=== PATIENT | male | born 1950 | race Caucasian/White ===

== ENCOUNTER 2025-07-24 19:37 | Emergency (ER) | payer MEDICARE, SELFPAY ==
--- OUTSIDE RECORDS SUMMARY | 2007-09-30 07:57 | XMS_ITS | Continuity of Care Document ---
Author Organization LEONELA Guillaume Address [address] [place] [address] Phone Care Team Providers Care [facility] Attendant Name Role Phone Esequiel UMANZOR MD, Herson Unavailable Unavailable Procedures Procedure Date Offic/outpt E&m Estab Low-mod 7 Advance Directives Directive Yes / No Effective Date File Name No Information Encounters Encounter Description Practice Location Reason(s) For Visit Diagnoses Date Provider Providers Copied on Encounter Offic/outpt E&m Estab Low-mod LEONELA Guillaume, [address], [place], [place], [id number], tel:[phone] [facility] No Information 7 Esequiel Bains. [address], [place], [place], [facility], . tel:[phone] Referring Provider: Herson Hitchcock, [address] [place], [place], [facility]. tel:[phone] Family History Family Member Type Diagnosis Age At Onset No Information Payers Payer name Insurance type Covered alliance party ID Authoriza timena(s) Blue Plus BL [id number] Social History Type Description Quantity Date Captured Comments Sex Male Smoking Status No Information Chief Complaint And Reason For Visit No Information Reason For Referral Reason For Referral No Information History Of Present Illness Encounter Date Complaint History Of Prese nt Illness No Information Functional Status Date Functional Assessmen t No Information Instructions Date Instruction Additional Infor mation No Information Assessments Type Assessment Date No Information Patient Care Teams Name Effective Dates (start - stop) Status Members No Information
--- OUTSIDE RECORDS SUMMARY | 2007-09-30 07:57 | XMS_ITS | Continuity of Care Document ---
Author Organization LEONELA Guillaume Address [address] [place] [address] Phone Care Team Providers Care Healthcare Receptionist Name Role Phone Esequiel UMANZOR MD, Herson Unavailable Unavailable Procedures Procedure Date Offic/outpt E&m Estab Low-mod 7 Advance Directives Directive Yes / No Effective Date File Name No Information Encounters Encounter Description Practice Location Reason(s) For Visit Diagnoses Date Provider Providers Copied on Encounter Offic/outpt E&m Estab Low-mod [facility]ONELA Guillaume, [address], [place], [place], [id number], tel:[phone] [facility] No Information 7 Eseuqiel Bains. [address], [place], [place], [facility], . tel:[phone] Referring Provider: Herson Hitchcock, [address] [place], [place], [facility]. tel:[phone] Family History Family Member Type Diagnosis Age At Onset No Information Payers Payer name Insurance type Covered republican ID Authoriza timena(s) Blue Plus BL [id number] Social History Type Description Quantity Date Captured [...]
--- OUTSIDE RECORDS SUMMARY | 2025-07-24 19:39 | XMS_ITS | Clinical Summary ---
Author Organization [facility] Address [address] [place] [address] Care Team Providers Care Plumbing Assembler Name Role Phone Frank, Cherelle Rbiera MD Primary Care Provider Allergies Active Allergy Reactions Criticality Noted Date Comments Rofecoxib Nausea Only Medications latanoprost (XALATAN) 0.005 % ophthalmic solution 1 06/13/20 15 Active celecoxib 200 mg capsuleIndications :Degeneration of intervertebral disc of lumbosacral region, unspecified whether pain present Take 1 Capsule (200 mg) by mouth once daily with a meal. 90 Capsule 3 02/18/20 25 Active gabapentin 100 mg capsuleIndications :Peripheral sensory neuropathy Take 2 Capsules (200 mg) by mouth three times daily. 540 Capsule 3 02/18/20 25 Active lisinopriL 20 mg tabletIndications: HTN (hypertension) Take 1 Tablet (20 mg) by mouth once daily. 90 Tablet 3 02/18/20 25 Active verapamil SR 240 mg extended release tabletIndications: Essential hypertension, malignant Take 1 Tablet (240 mg) by mouth once daily with a meal. 90 Tablet 3 02/18/20 25 Active traMADoL (ULTRAM) 50 mg tabletIndications: Articular cartilage disorder Take 1 Tablet (50 mg) by mouth four times daily. 120 Tablet 07/08/20 25 Active traMADoL 50 mg tabletIndications: Articular cartilage disorder Take 1 Tablet (50 mg) by mouth four times daily. 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 of lumbar or lumbosacral interverte bral disc 12/08/2008 Erectile dysfunction 12/08/2008 Resolved Problems Problem Noted Date Diagnosed Date Resolved Date Essential hypertension, malignant 07/20/2010 11/11/2014 VENTRICULAR TACHYCARDIA 05/2023 Encounters Date Type Department Care Team Description 07/08/2025 Refill [facility] [address] [place] [address] Cherelle Marie MD Refill Request (Tramadol) 05/26/2025 Refill [facility] [address] [place] [address] Cherelle Marie MD Refill Request (Tramadol) from Last 3 Months Immunizations Immunization Administration Dates Next Due Influenza, High-dose Quadrivalent Inactivated Influenza, IIV3 (Age >=3 years) 11/02/2008,11/06 Influenza, IIV4 09/01/2014 Influenza, Inactivated IIV3 (Age 65+ Years) Preserv Free 09/15/2018,12/12/2017 Pneumococcal Poly,23-Valent (Pneumovax) 09/15/20 18 Pneumococcal conj 13-Valent (Prevnar 13) 017 Td, Preservative Free (age >= 7 Years) 6 Tdap 03/01/2023,09/11/2012 Zoster (Shingrix-RZV, recombinant) 07/02/2023, Family History Medical History Relation Name Comments Heart Disease Father Not until in h is 80s Anesthesia Problem No Family History Blood Disease No Family History Relation Name Status Comments Father Social History Tobacco Use Types Packs/Day Years Used Date Smoking Tobacco: Never Smokeless Tobacco: Never Tobacco Cessation:Counseling Given: Yes Alcohol Use Standard Drinks/Week Comments Yes 0 (1 standard drink = 0.6 oz pur e alcohol) rare PHQ-2 Answer Date Recorded PHQ-2 TOTAL SCORE 0 02/17/2025 Social Connections Answer Date Recorded Do you often feel lonely or isolated from those around you? 0 02/17/2025 Financial Resource Strain Answer Date R ecorded Difficulty of Paying Living Expenses 3 02/17/2025 Difficulty of Paying Living Expenses Not on file 02/17/2025 Food Insecurity Answer Date Recorded Do you worry your food will run out before you are able to buy more? 1 02/17/2025 Transportation Needs Answer Date Record ed Does lack of transportation keep you from medica l appointments? 1 02/17/2025 Does lack of transportation keep you from work, meetings or getting things that you need? 1 02/17/2025 Housing Stability Answer Date Recorded What is your housing situation today? 1 02/17/2025 Utilities Answer Date Recorded Do you have trouble paying f or utilities (for example, heat, electricity, water, phone)? 1 02/17/2025 Sex and Gender Information Value Date Recorded Sex Assigned at Not on file Legal Sex Male 6:27 AM MANAGER CREATIVE Gender Identity Not on file Sexual Orientation Not on file Obstetrics History Last Filed Vital Signs Vital Sign Reading Time Taken Comments Blood Pressure 168/91 02/17/2025 9:28 AM CDT Pulse 80 02/17/2025 9:28 AM CDT Temperature 36.6 C (97.8 F) 10/31/2023 9:07 AM MANAGER CREATIVE Respiratory Rate 14 02/18/2013 10:39 AM CDT Oxygen Saturation 98% 02/17/2025 9:28 AM CDT Inhaled Oxygen Concentration - - Weight 90.1 kg (198 lb 9.6 oz) 02/17/2025 9:28 A M CDT Height 179.1 cm (5' 10.5) 02/17/2025 9:28 AM CD T Body Mass Index 28.09 02/17/2025 9:28 AM CDT Plan of Treatment Upcoming Encounters Date Type Department Care Team (Late st Contact Info) Description 08/23/2025 9:55 AM CDT Office Visit [facility] [address] [facility] [address] Cherelle Marie MD [address] [place] [address] Health Maintenance Due Date Last Done Comments COVID-19 vaccine series ( season) 2025 08/10/2024, 09/10/2023, 08/21/2022, Additional history exists Influenza Vaccine (#1) 2025 8, 12/12/2017, 09/01/2014, Additional history exists BMI (ht and wt on same day) for age 18+ 02/17/2026 02/17/2025, 02/10/2024, 05/23/2023, Additional history exists Depression screening for age 12+ 02/18/2026 02/18/2025, 02/17/2025, 02/10/2024, Additional history exists Medicare Wellness for age 65+ 02/18/2026 02/17/2025, 02/10/2024, 02/04/2023, Additional history exists Fecal testing non-DNA (FIT,FOBT,iFOBT) for age 45-75 03/01/2026 03/01/2025, 02/11/2024, 02/07/2023, Additional history exists RSV vaccine for adults or (1 - 1-dose 75+ series) 2026 Lipids for age 45-75 02/17/2030 02/17/2025, 02/10/2024, 01/31/2022, Additional history exists Tetanus booster 03/01/2033 03/01/2023, 09/01, 05/12/2006 (Completed outside of [facility]), Additional history exists Pneumococcal series for age 50+ Completed 09/15/2018, 08/27/2017 Hepatitis C screening for age 18-79 Completed 10/20/2020 Zoster (shingles) series for age 50+ Completed 07/02/2023, 02/07/2023 Hepatitis B series for 19+ Aged Out N o longer eligible based on patient's age to complete this topic Medical Devices Implanted Type Area Dynamite Packing Machine Operator Device Identifier Shelf Expiration Date Model / Serial / Lot Sut Ancr 2.8 [employer]ak W/Fiber Wire - [id number] Implanted:Qty: 1 on 10/02/2006 at [facility] Ortho Implants, Misc. [employer] [id number] / / [id number] Procedures Procedure Name Priority Date/Time Associated Diagnosis Comments OCCULT BLOOD IFOBT STOOL Routine 03/01/2025 12:30 PM CDT Screening for colon cancer LIPID PANEL W REFLEX MEASURED LDL Routine 02/17/2025 10:16 AM CDT Lipid screening ANTI HCV Routine 10/20/2020 9:38 AM MANAGER CREATIVE Need for hepatitis C screening test from Last 3 Months or Most Recently Relevant to Health Maintenance Results * OCCULT BLOOD IFOBT STOOL [[id number]] (03/01/2025 12:30 PM CDT) STOOL BLOOD ,IFOBT Negative Negative 03/10/2025 6:12 PM CDT [facility] [employer] [facility] Stool STOOL SPECIMEN / Unknown Non-Blood / Unknown 03/01/2025 12:30 PM CDT 03/08/2025 1:12 PM CDT us Cherelle Marie MD LABORATORY Final R [facility] [address] * (ABNORMAL) LIPID PANEL W REFLEX MEASURED LDL (02/17/2025 10:16 AM CDT) CHOLESTEROL, TOTAL 184 <200 mg/dL [facility] HDL CHOLESTEROL 49 > OR = 40 mg/dL [facility] TRIGLYCERIDES 120 <150 mg/dL [facility] LDL-CHOLESTEROL 112(H) mg/dL (calc) [facility] Comment: Reference range: <100 Desirable range <100 mg/dL for primary prevention; <70 mg/dL for patients with CHD or diabetic patients with > or = 2 CHD risk factors. LDL-C is now calculated using the Eva calculation, which is a validated novel method providing better accuracy than the Friedewald equation in the estimation of LDL-C. Lucas WINKLER et al. CLAUDIA. 2013;310(19): 6999-4742 (http://education.Creativity Software/faq/YMO585) CHOL/HDLC RATIO 3.8 <5.0 (calc) [facility] NON HDL CHOLESTEROL 135(H) <130 mg/dL (calc) [facility] Comment: For patients with diabetes plus 1 major ASCVD risk factor, treating to a non-HDL-C goal of <100 mg/dL (LDL-C of <70 mg/dL) is considered a therapeutic option. Blood BLOOD SPECIMEN / Unknown 02/17/2025 10:16 AM CDT 02/17/2025 10:18 AM CDT Cherelle Marie MD CHEMISTRY Final R esult Performing Organization Address City/[facility]/ZIP Co de Phone Number [place] [facility] [address] [place] [address], [facility] [address] [place] [phone] * ANTI HCV (10/20/2020 9:38 AM MANAGER CREATIVE) HEPATITIS C ANTIBODY Non-React sarbjit Non-React sarbjit 10/20/2020 6:24 PM MANAGER CREATIVE [employer] [facility] Comment:Antibodies to HCV no t detected; does not exclude the possibility of exposure to HCV. Blood BLOOD SPECIMEN / Unknown Venipuncture / Unknown 10/20/2020 9:38 AM MANAGER CREATIVE 10/20/2020 9:38 AM MANAGER CREATIVE Cherelle Marie MD SEND OUTS Final R esult [employer] [facility] [address] [place] [address], [place] from Last 3 Months or Most Recently Relevant to Health Maintenance Insurance [facility] MEDICARE [employer] MEDICARE PB ONLY MEDICARE PART B HB ONLY MEDICARE PART A HB ONLY Advance Directives Documents on File Type Date Recorded Patient Grant Coordinator Expl anation Healthcare Directive 09/22/2018 11:13 AM HEALTHCARE DIRECTIVE, [place], 01/05/16 * Full Code (Latest Code Status on File) Date Activated Date Inactivated Comments 10/02/2006 11:41 AM 10/02/2006 5:53 PM Care Teams Plumbing Assembler Relationship Specialty Start Date End Date [place]here[place] [address] PCP - General Family Practice 04/29/12
[2025-07-24 19:45] VITALS: BP 163/88; PULSE 68; RESP 18; TEMP 36.8; O2SAT 98; BMI 26.5
--- NOTE | 2025-07-24 20:09 | CRLHL7_ITS ---
For Patients: As a result of the Century Cures Act, medical imaging exams and procedure reports are released immediately into your electronic medical record. You may view this report before your referring provider. If you have questions, please contact your health care provider. INDICATION: Neck pain left-sided. TECHNIQUE: Cervical spine 3 view. COMPARISON: None. FINDINGS: Bones: Alignment is normal. No fractures or significant bone lesions. Joints: Disc spaces and facets demonstrate mild multilevel degenerative changes.. Soft tissues: Unremarkable. Dictated by Tanya Cortes MD @ 07/24/2025 9:01:11 PM (Electronically Signed)
--- NOTE | 2025-07-24 20:14 | ED.GENADULT ---
HPI - General Adult General Date Seen: 07/24/25 Chief complaint: Shoulder Injury/Pain Stated complaint: L shoulder pain Time Seen by Provider: 07/24/25 19:56 Source: patient Mode of arrival: ambulatory Limitations: no limitations History of Present Illness HPI narrative: Patient is a 74-year-old gentleman who presents here for evaluation of left-sided neck pain, that he has worsening since this morning, he was pulling some weeds on some of his trees, and then noted that the left side of his neck became very painful. Denies any radiation past shoulder of the discomfort, any time he moves his neck he tends to cry out in pain, he has noted no altered sensation there is no history of fall or injury he has had no fevers chills or sweats. He does have a history of chronic pain involving both his knees and his back, and has been on tramadol and gabapentin for this, gabapentin is also used for his neuropathy neuropathy brought in tonight because he has pain level is what he describes is 10/11, I explained to him that that is not all conducive to her pain scale. Related Data Home Medications ?Medication ?Instructions ?Recorded ?Confirmed celecoxib 200 mg capsule 200 mg PO DAILY 07/24/25 07/24/25 gabapentin 100 mg capsule 200 mg PO 3XD 07/24/25 07/24/25 latanoprost 0.005 % eye drops 1 drp ophthalmic (eye) QPM 07/24/25 07/24/25 lisinopril 20 mg tablet 20 mg PO DAILY 07/24/25 07/24/25 tramadol 50 mg tablet 50 mg PO QID 07/24/25 07/24/25 verapamil 240 mg tablet,extended 240 mg PO DAILY 07/24/25 07/24/25 release Allergies Allergy/AdvReac Type Severity Reaction Status Date / Time No Known Drug Allergies Allergy Verified 07/24/25 19:51 Review of Systems Status of ROS: Reports: 10 or more systems reviewed and unremarkable except as noted in History and below PFSH [facility] Social History Smoking Status: Never smoker How often do you have a drink containing alcohol: monthly or less AUDIT-C Alcohol total score: 1 Non-prescribed substance use: denies use Exam Narrative: Exam Narrative: Patient is a nice gentleman seen in her room 5, he is able to sit up, is able to walk normally movement of his neck is from approximately from 8 cm to 12 cm in flexion extension, side flexion is less than 5? and rotation is less than 30? bilaterally he describes pain over the left side of his paraspinal muscles of his neck. There is no problem with moving shoulders bilaterally, with internal external rotation and abduction. 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 Sensation is normal. No tenderness is noted along his carotids, is JVP is not elevated, there is no swelling of his neck he does not have any bruits bilaterally and his neck. Normal distal pulses are notable in both of his upper extremities. I recommended x-ray at this point as I suspect that this is radicular pain pattern. Const: Vital Signs, click to edit/add: Vital Signs - 24 hr 07/24/25 19:45 Temperature 98.2 F Pulse Rate [Pulse Oximeter] 68 Respiratory Rate 18 Blood Pressure [Ri ght Upper Arm] 163/88 H Pulse Oximetry 98 Oxygen Delivery Me thod Room Air Documenting provider has reviewed patient's vital signs: yes Course Course ED Course: I reviewed with the patient his x-rays look awesome, no evidence of significant spondylolisthesis is disc spaces all look excellent he does have some arthritis, I suspect this still could be either musculoskeletal from a muscle spasm or possibly related to a disc protrusion. Nevertheless I think a little bit of glucocorticoid, along with increasing his gabapentin would go a long way to helping him he already has appointment on Saturday to see his primary care physician, if he has increasing weakness, inability to move his left upper extremity other swelling, then I think coming back and be seen. But there is no evidence of any vascular problem here. He was really comfortable with this plan. Vital Signs Vital signs: Initial Vital Signs Temperature 98.2 F 07/24/25 19:45 Temperature Source Temporal Artery Scan 07/24/25 19:45 Pulse Rate 68 07/24/25 19:45 Respiratory Rate 18 07/24/25 19:45 Blood Pressure 163/88 H 07/24/25 19:45 Blood Pressure Mean 113 H 07/24/25 19:45 Blood Pressure Position Sitting 07/24/25 19:45 Pulse Oximetry 98 07/24/25 19:45 Oxygen Delivery Method Room Air 07/24/25 19:45 Vital Signs Temperature 98.2 F 07/24/25 19:45 Pulse Rate 68 07/24/25 19:45 Respiratory Rate 18 07/24/25 19:45 Blood Pressure 163/88 H 07/24/25 19:45 Pulse Oximetry 98 07/24/25 19:45 Oxygen Delivery Method Room Air 07/24/25 19:45 Temperature 98.2 F 07/24/25 19:45 Pulse Rate 68 07/24/25 19:45 Respiratory Rate 18 07/24/25 19:45 Blood Pressure 163/88 H 07/24/25 19:45 Pulse Oximetry 98 07/24/25 19:45 Oxygen Delivery Method Room Air 07/24/25 19:45 Medical Decision Making MDM Narrative Medical decision making narrative: In this evaluation I considered multiple causes such as a fracture, dislocation, his cervical spine, epidural abscess, other infection, carotid dissection, cervical radiculopathy Imaging Data Cervical two view: Attestation: I have reviewed the pertinent imaging results. My impression: Reviewed the x-rays see no evidence of acute fracture problem. Discharge Plan Discharge Clinical Impression: Neck pain on left side Patient Disposition: Home w/ Parent or Adult Condition: Stable Instructions: Acute Neck Pain (ED) Additional Instructions: I think this may be related to a disc issue, we call it a cervical radiculopathy. We will use the prednisone to see we can, this down, you can use some ice on the area and increase your gabapentin to 300 mg tonight. Follow up on Saturday with your doctor, to discuss with her further management would be appropriate. No more weed pulling. Activity Level: Light activity Discharge Diet: Regular Prescriptions: No Action celecoxib 200 mg capsule 200 mg PO DAILY latanoprost 0.005 % drops 1 drp ophthalmic (eye) QPM lisinopril 20 mg tablet 20 mg PO DAILY tramadol 50 mg tablet 50 mg PO QID verapamil 240 mg tablet extended release 240 mg PO DAILY gabapentin 100 mg capsule 200 mg PO 3XD Follow Up/Referrals: Hieu Maddox MD [Primary Care Provider, Family Practice] Stand Alone Forms: MyHealth Info Instructions
== END 2025-07-24 20:53 | disposition home or self-care (01) ==
PROVIDERS: Emergency Provider Family Medicine; PCP Family Medicine
DX: M54.2 Cervicalgia (principal); X50.1XXA Overexertion from prolonged static or awkward postures, initial encounter; Y93.H2 Activity, gardening and landscaping
CPT/HCPCS: 72040; 99283; 99284

== ENCOUNTER 2025-10-04 10:30 | Outpatient (RCR) | payer MEDICARE, SELFPAY | END 2025-11-29 15:26 | disposition home or self-care (01) | PROVIDERS: PCP Family Medicine; Visit Provider Family Medicine | DX: S16.1XXD Strain of muscle, fascia and tendon at neck level, subsequent encounter (principal); Z51.89 Encounter for other specified aftercare | CPT/HCPCS: 97110; 97140; 97162 ==